=== PATIENT | male | born 1965 | race Caucasian/White ===

== ENCOUNTER 2020-11-27 11:53 | Emergency (ER) | payer MEDICAID ==
[~2020-11-27] VITALS: Ht 172.7 cm; Wt 83.9 kg
[2020-11-27 11:59] VITALS: BP 137/89
--- NOTE | 2020-11-27 12:08 | NUR ---
ED Nurse Note: pt. came from home with rash /bumps on his left leg for 3 days. AAO x4, ambulatory.
[2020-11-27] MEDS ORDERED: Vancomycin 1.5gm/300ml Premix 300 ML IVPB ONE (12:15)
--- NOTE | 2020-11-27 12:25 | Emergency Room Report ---
History of Present Illness General Chief Complaint: Skin Rash/Abscess Source: Patient Present Illness HPI Patient is a 55-year-old male presents for increased left lower extremity discomfort and swelling. Reports having onset of redness approximately 3 days ago. He states he initially had scratched area to the left lower extremity and subsequently noticed increased pain and swelling to the left leg. Denies any bleeding. Reports having prior history of COPD. Denies any vomiting. No fever. Reports having increased pain to the thigh as well as to the left groin area. 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 COVID-19 Screening: Negative COVID-19 COVID-19 Testing Source: nasal Patient History Past Medical History: see triage record Reviewed Nursing Documentation: PMH: Agreed; PSxH: Agreed Nursing Documentation-PMH Hx COPD: Yes Review of Systems All Other Systems: negative except mentioned in HPI Physical Exam Vital Signs Date Time Temp Pulse Resp B/P (MAP) Pulse Ox O2 Delivery O2 Flow Rate FiO2 11/27/20 11:59 98.2 108 19 137/89 98 Room Air Sp02 EP Interpretation: reviewed, normal General Appearance: normal inspection, well appearing, no apparent distress, alert, GCS 15, Chronically Ill Head: atraumatic ENT: normal ENT inspection, hearing grossly normal, normal voice Neck: normal inspection, full range of motion, supple, no bony tend Respiratory: normal inspection, lungs clear, normal breath sounds, no respiratory distress, no retraction, no wheezing Cardiovascular #1: regular rate, rhythm, no edema Gastrointestinal: normal inspection, normal bowel sounds, non tender, soft, no guarding, no hernia Genitourinary: no CVA tenderness Musculoskeletal: normal inspection, back normal, normal range of motion Neurologic: alert, motor strength/tone normal, 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 Lymphatic: inguinal node tender (L) Medical Decision Making Diagnostic Impression: Primary Impression: Lymphangitis ER Course Presented for left-sided leg discomfort. Differential diagnosis include was not limited to cellulitis, deep venous thrombosis, lymphangitis among others. Because of complexity of patient's case laboratory tests and imaging studies were ordered. Patient was initially afebrile. EKG interpreted by me showed normal sinus rhythm with a rate of [address] or T wave changes noted. Duplex venous ultrasound was ordered due to patient's asymmetric swelling for possible DVT in patient does have some varicose veins in the affected extremity.Patient was given IV fluids as well as IV antibiotics. Duplex ultrasound was negative for DVT. Patient appears to be stable for transfer. He was given IV antibiotics empirically for possible lymphangitis. Was discussed with Dr. Cat who agreed accept the patient to [facility]. Labs Test 11/27/20 12:30 White Blood Count 10.4 K/UL (4.8-10.8) Red Blood Count 5.91 M/UL (4.70-6.10) Hemoglobin 17.5 G/DL (14.2-18.0) Hematocrit 53.0 % (42.0-52.0) Mean Corpuscular Volume 90 FL (80-99) Mean Corpuscular Hemoglobin 29.6 PG (27.0-31.0) Mean Corpuscular Hemoglobin Concent 33.0 G/DL (32.0-36.0) Red Cell Distribution Width 12.3 % (11.6-14.8) Platelet Count 282 K/UL (150-450) Mean Platelet Volume 6.1 FL (6.5-10.1) Neutrophils (%) (Auto) 66.8 % (45.0-75.0) Lymphocytes (%) (Auto) 19.5 % (20.0-45.0) Monocytes (%) (Auto) 9.9 % (1.0-10.0) Eosinophils (%) (Auto) 2.5 % (0.0-3.0) Basophils (%) (Auto) 1.3 % (0.0-2.0) Prothrombin Time 11.3 SEC (9.30-11.50) Prothromb Time International Ratio 1.0 (0.9-1.1) Activated Partial Thromboplast Time 31 SEC (23-33) Urine Color Yellow Urine Appearance Slightly cloudy Urine pH 5 (4.5-8.0) Urine Specific [place] 1.020 (1.005-1.035) Urine Protein 2+ (NEGATIVE) Urine Glucose (UA) Negative (NEGATIVE) Urine Ketones 2+ (NEGATIVE) Urine Blood Negative (NEGATIVE) Urine Nitrite Negative (NEGATIVE) Urine Bilirubin 1+ (NEGATIVE) Urine Ictotest Negative (NEGATIVE) Urine Urobilinogen 4 MG/DL (0.0-1.0) Urine Leukocyte Esterase 1+ (NEGATIVE) Urine RBC 0 /HPF (0 - 0) Urine WBC 5-10 /HPF (0 - 0) Urine Squamous Epithelial Cells Few /LPF (NONE/OCC) Urine Bacteria Moderate /HPF (NONE) Urine Mucus Many /LPF (NONE/OCC) Sodium Level 139 MMOL/L (136-145) Potassium Level 3.7 MMOL/L (3.5-5.1) Chloride Level 103 MMOL/L (98-107) Carbon Dioxide Level 24 MMOL/L (21-32) Anion Gap 12 mmol/L (5-15) Blood Urea Nitrogen 18 mg/dL (7-18) Creatinine 0.9 MG/DL (0.55-1.30) Estimat Glomerular Filtration Rate > 60 mL/min (>60) Glucose Level 97 MG/DL (74-106) Lactic Acid Level 1.30 mmol/L (0.4-2.0) Calcium Level 9.7 MG/DL (8.5-10.1) Total Bilirubin 0.8 MG/DL (0.2-1.0) Aspartate Amino Transf (AST/SGOT) 19 U/L (15-37) Alanine Aminotransferase (ALT/SGPT) 16 U/L (12-78) Alkaline Phosphatase 72 U/L (46-116) Total Creatine Kinase 102 U/L (26-308) Creatine Kinase MB 1.6 NG/ML (0.0-3.6) Creatine Kinase MB Relative Index 1.5 Troponin I 0.000 ng/mL (0.000-0.056) Total Protein 8.4 G/DL (6.4-8.2) Albumin 4.1 G/DL (3.4-5.0) Globulin 4.3 g/dL Albumin/Globulin Ratio 1.0 (1.0-2.7) EKG Diagnostic Results Rate: normal Rhythm: NSR ST Segments: no acute changes Last Vital Signs Date Time Temp Pulse Resp B/P (MAP) Pulse Ox O2 Delivery O2 Flow Rate FiO2 11/27/20 11:59 98.2 108 19 137/89 (105) 98 Room Air Status: improved Disposition: ADMITTED INPATIENT Condition: Stable Aubrey Fry MD Nov 27, 2020 12:25
--- NOTE | 2020-11-27 12:57 | NUR ---
ED Nurse Note: Collected blood and urine specimen then sent to lab.
--- NOTE | 2020-11-27 13:00 | NUR ---
ED Nurse Note: Covid rapid swab sent. US staff at the bed side for vascular US of left leg.
[2020-11-27 13:08] LABS: BASOPHILS % (AUTO) 1.3 % (0.0-2.0); EOSINOPHILS % (AUTO) 2.5 % (0.0-3.0); HEMOGLOBIN 17.5 G/DL (14.2-18.0); LYMPHOCYTES % (AUTO) 19.5 % (20.0-45.0); MEAN CORPUSCULAR VOLUME 90 FL (80-99); MONOCYTES % (AUTO) 9.9 % (1.0-10.0); NEUTROPHILS % (AUTO) 66.8 % (45.0-75.0); PLATELET COUNT 282 K/UL (150-450); RED BLOOD COUNT 5.91 M/UL (4.70-6.10); RED CELL DISTRIBUTION WIDTH 12.3 % (11.6-14.8); WHITE BLOOD COUNT 10.4 K/UL (4.8-10.8)
[2020-11-27 13:09] LABS: APPEARANCE,URINE SLIGHTLY CLOUDY; BILIRUBIN, URINE 1+ (NEGATIVE); GLUCOSE, URINE (UA) NEGATIVE (NEGATIVE); KETONES,URINE 2+ (NEGATIVE); LEUKOCYTE ESTERASE ,URINE 1+ (NEGATIVE); NITRITE,URINE NEGATIVE (NEGATIVE); PH,URINE 5 (4.5-8.0); PROTEIN,URINE 2+ (NEGATIVE); UROBILINOGEN,URINE 4 MG/DL (0.0-1.0)
[2020-11-27 13:12] LABS: COLOR,URINE YELLOW
--- NOTE | 2020-11-27 13:15 | NUR ---
ED Nurse Note: Dr Ang tse for patient to drink water. Bottled water provided to patient.
[2020-11-27 13:19] LABS: ANION GAP 12 mmol/L (5-15); BLOOD UREA NITROGEN 18 mg/dL (7-18); CALCIUM 9.7 MG/DL (8.5-10.1); CARBON DIOXIDE 24 MMOL/L (21-32); CHLORIDE 103 MMOL/L (98-107); CREATININE 0.9 MG/DL (0.55-1.30); POTASSIUM 3.7 MMOL/L (3.5-5.1); SODIUM 139 MMOL/L (136-145)
[2020-11-27 13:27] LABS: ALANINE AMINOTRANSFERASE 16 U/L (12-78); ALBUMIN 4.1 G/DL (3.4-5.0); ALKALINE PHOSPHATASE 72 U/L (46-116); ASPARTATE AMINO TRANSFERASE 19 U/L (15-37); BILIRUBIN,TOTAL 0.8 MG/DL (0.2-1.0); CKMB 1.6 NG/ML (0.0-3.6); CREATINE KINASE 102 U/L (26-308)
--- NOTE | 2020-11-27 13:50 | Diagnostic Imaging Report ---
Indication: Left leg pain and swelling Technique: Grayscale and duplex Doppler imaging of the veins in the left lower extremity performed in real time utilizing compression and augmentation. Comparison: None Findings: Duplex Doppler interrogation of the veins in the left lower extremity is performed from the common femoral vein to the popliteal vein. Normal venous compressibility demonstrated throughout. No thrombus identified. Waveform analysis shows good respiratory phasicity and augmentation. Imaged portions of the left greater saphenous vein are also patent and compressible. Imaged left calf veins are patent. Comparison images of the right common femoral vein demonstrated it to be patent and compressible. IMPRESSION: No evidence of deep venous thrombosis involving the left lower extremity.
[2020-11-27 14:02] VITALS: BP 129/80
--- NOTE | 2020-11-27 15:32 | NUR ---
ED Nurse Note: Report given to Lizzy MCGRATH of [facility].
[2020-11-27 16:00] VITALS: BP 134/76
--- NOTE | 2020-11-27 17:19 | NUR ---
ED Nurse Note: Dinner tray at the bed side. Patient is eating without distress. Pt aware of transfer to [facility].
--- NOTE | 2020-11-27 18:17 | NUR ---
ED Nurse Note: Report given to [facility] ambulance @ bedside.
[2020-11-27 18:25] VITALS: BP 126/80
== END 2020-11-27 18:25 | disposition other institution (70) ==
LOC: EMR 12:24
DX: I89.1 Lymphangitis (principal); J44.9 Chronic obstructive pulmonary disease, unspecified
CPT/HCPCS: 36415; 80053; 81003; 82550; 82553; 83605; 84484; 85025; 85610; 85730; 87040; 87086; 93005; 93971; 96365; 96366; J3370; U0002; Z7502; 99285